=== PATIENT | female | born 1995 | race Hispanic/Latino ===

== ENCOUNTER 2020-01-26 08:46 | Outpatient (CLI) | payer OTHER ==
--- NOTE | 2020-01-26 11:35 | ULT ---
OB ULTRASOUND: Date: 01/26/2020 HISTORY: anatomy. FINDINGS: A single, live intrauterine gestation is seen with measurements corresponding to an estimated gestati onal age of 28 weeks and 2 days, and ЕЛЕНА at 04/17/2020. The estimated weight measures 1115 gm ( 2 lbs 7 oz). This corresponds to 43% by Hadlock criteria. measurements are as follows: BPD: 7.11 cm, 28 weeks/4 days HC: 26.84 cm, 29 weeks/2 days AC: 22.92 cm, 27 weeks/3 days FL: 5.20 cm, 27 weeks/6 days heart rate measures 149 beats/minute. Placenta is anteriorly located. VITALIY measures 12.1 cm. No placenta previa is seen. Cervical length measures 3.3 cm. A 3 vessel cord, cord insertion, kidneys, bladder, stomach, 4 chamber heart, spine, lips/nose, upper/lower extremities, and cerebellum are visualized. Lateral ventricles not seen. IMPRESSION: 1. Single, liver intrauterine of 28 weeks and 2 days estimated gestational age. ЕЛЕНА at 01/2020. 2. Nonvisualization of the lateral ventricles. POS: [facility]
== END 2020-01-26 08:47 | disposition home or self-care (01) ==
LOC: BICULT 08:46
PROVIDERS: ATTEND Nurse Practitioner Women's Health
DX: Z34.82 Encounter for supervision of other normal pregnancy, second trimester (principal); Z3A.28 28 weeks gestation of pregnancy
CPT/HCPCS: 76805

== ENCOUNTER 2020-04-05 11:21 | Outpatient (CLI) | payer OTHER ==
[2020-04-06 13:49] LABS: SARS-CoV-2 MS2 Positive; SARS-CoV-2 N Gene Negative; SARS-CoV-2 S Gene Negative; SARS-CoV-2 orf1ab Negative
== END 2020-04-05 11:22 | disposition home or self-care (01) ==
LOC: SCSRAD 11:21 → SCSLAB 11:22
PROVIDERS: ATTEND Family Medicine
DX: Z01.812 Encounter for preprocedural laboratory examination (principal); Z11.59 Encounter for screening for other viral diseases
CPT/HCPCS: 87635; U0003

== ENCOUNTER 2020-04-07 19:15 | Inpatient (IN) | payer MEDICAID, OTHER, SELFPAY ==
[2020-04-07 20:40] VITALS: BMI 34.7
[2020-04-07] MEDS ORDERED: hydrALAZINE 20 MG/ML VIAL SLOW IVP PRN (21:29)
[2020-04-07] MEDS ORDERED: NS / Oxytocin 40 units/1000ml 1,000 ML IV PRN (21:29)
[2020-04-07] MEDS ORDERED: Butorphanol Tartrate 1 MG/ML VIAL SLOW IVP PRN (21:29)
[2020-04-07] MEDS ORDERED: Ibuprofen 800 MG TAB PO PRN (21:29)
[2020-04-07] MEDS ORDERED: Promethazine HCl 25 MG/ML VIAL IM PRN (21:29)
[2020-04-07] MEDS ORDERED: Lidocaine 1% (PF) 30 ML VIAL SC PRN (21:29)
[2020-04-07] MEDS ORDERED: Carboprost 250 MCG/ML AMP IM PRN (21:29)
[2020-04-07] MEDS ORDERED: Misoprostol 200 MCG TAB PR PRN (21:29)
[2020-04-07] MEDS ORDERED: Diphenoxylate HCl/Atropine Tablet PO PRN (21:29)
[2020-04-07] MEDS ORDERED: Ondansetron PF 4 MG/2 ML Vial IVP PRN (21:29)
[2020-04-07] MEDS ORDERED: Methylergonovine 0.2 MG/ML VIAL IM PRN (21:29)
[2020-04-07] MEDS ORDERED: HYDROcodone/Acetaminophen 5/325 mg Tablet PO PRN (21:29)
[2020-04-07] MEDS ORDERED: Penicillin G Potassium 5 MILL.UNITS in Sodium Chloride 0.9% 100 ML IVPB SCH (21:45)
[2020-04-07 22:36] LABS: Mean Corpuscular Hemoglobin 30.8 pg (27.0-31.0); Mean Corpuscular Volume 90.5 fL (78.0-98.0); Mean Platelet Volume 9.6 fL (7.4-10.4); Platelet Count 216 thou/uL (130-400); Red Blood Cell (RBC) Count 3.89 mill/uL (4.20-5.40); White Blood Cell (WBC) Count 10.5 thou/uL (4.8-10.8)
[2020-04-07 23:04] LABS: Syphilis Antibody Nonreactive (Nonreactive); Syphilis Antibody Index 0.02 S/CO (<1.00 Non-Reactive)
[2020-04-08] MEDS: Lactated Ringer's 1,000 ML IV SCH ×2 (01:06→12:34)
[2020-04-08 01:29] LABS: HBSAg Index 0.13 S/CO (0-0.99); Hep B Surf Ag Non-Reactive S/CO (NonReactive)
[2020-04-08] MEDS ORDERED: NS w/ Oxytocin 10 units 500 ML IV SCH ×2 (05:00)
[2020-04-08] MEDS: Penicillin G 2.5 MILL.units 2.5 MILL.UNITS in Premix Bag 1 BAG IVPB SCH ×3 (05:22→14:19)
[2020-04-08] MEDS ORDERED: Milk Of Magnesia 30 ML UDCUP PO PRN (13:16)
[2020-04-08] MEDS ORDERED: HYDROcodone/Acetaminophen 5/325 mg Tablet PO PRN ×2 (13:16)
[2020-04-08] MEDS ORDERED: Benzocaine-Menthol 82.5 ML CAN TOP PRN (13:16)
[2020-04-08] MEDS ORDERED: hydrALAZINE 20 MG/ML VIAL SLOW IVP PRN (13:16)
[2020-04-08] MEDS ORDERED: Bisacodyl 10 MG SUPP PR PRN (13:16)
[2020-04-08] MEDS ORDERED: Ondansetron PF 4 MG/2 ML Vial IVP PRN (13:16)
[2020-04-08] MEDS ORDERED: NS / Oxytocin 40 units/1000ml 1,000 ML IV SCH (13:16)
[2020-04-08] MEDS ORDERED: Lanolin Ointment 7 GM TUBE TOP PRN (13:16)
[2020-04-08] MEDS: Ibuprofen 800 MG TAB PO SCH ×2 (13:36→21:58)
[2020-04-08] MEDS: Ferrous Sulfate 325 MG TAB PO SCH (18:11)
[2020-04-08] MEDS: Docusate Calcium (SURFAK) 240 MG CAP PO SCH (21:59)
[2020-04-09] MEDS: Ibuprofen 800 MG TAB PO SCH ×2 (06:13→14:53)
[2020-04-09] MEDS: Ferrous Sulfate 325 MG TAB PO SCH ×2 (08:52→15:08)
[2020-04-09] MEDS ORDERED: Prenatal Vitamin 1 TAB PO SCH (09:00)
[2020-04-09] MEDS: Docusate Calcium (SURFAK) 240 MG CAP PO SCH (09:00)
[2020-04-09] MEDS ORDERED: Adacel (T-DAP) 0.5 ML SYRINGE IM ONE (09:00)
[2020-04-09 09:09] VITALS: TEMP 97.7
[2020-04-09 11:58] VITALS: BP 100/55
== END 2020-04-09 18:20 | disposition home or self-care (01) | DRG 807 ==
LOC: L&D 19:58 → 3SW 04-08 15:06
PROVIDERS: ADMIT Family Medicine; ATTEND Family Medicine
PROC: 10E0XZZ Delivery of Products of Conception, External Approach (ICD-10-PCS; principal; 2020-04-08)
PROC: 10907ZC Drainage of Amniotic Fluid, Therapeutic from Products of Conception, Via Natural or Artificial Opening (ICD-10-PCS; 2020-04-08)
PROC: 3E033VJ Introduction of Other Hormone into Peripheral Vein, Percutaneous Approach (ICD-10-PCS; 2020-04-08)
DX: O24.420 Gestational diabetes mellitus in childbirth, diet controlled (principal); Z37.0 Single live birth; O99.824 Streptococcus B carrier state complicating childbirth; Z3A.39 39 weeks gestation of pregnancy; O70.0 First degree perineal laceration during delivery
CPT/HCPCS: 36415; 85027; 86780; 86850; 86900; 86901; 87340; J2001; J2540; J2590; J3490